=== PATIENT | male | born 1985 | race Caucasian/White ===

== ENCOUNTER 2019-03-03 12:30 | Observation (INO) ==
[2019-03-03] MEDS ORDERED: IOPAMIDOL 100 ML BOTTLE IV ONE (12:31)
--- NOTE | 2019-03-03 13:04 | Emergency Department Note ---
Abdominal Pain HPI - General Chief Complaint: Abdominal Pain Stated Complaint: Abdominal pain Time Seen by Provider: 03/03/19 12:47 Source: patient Mode of arrival: ambulatory Limitations: no limitations - History of Present Illness HPI Narrative: This 33-year-old male is accompanied by Yady, spouse or significant other, and reports 36 hours of sudden onset of right lower quadrant abdominal pain that is moderate in severity and constant and pattern. There is no associated nausea or vomiting. He did have some minor diarrhea yesterday. Th ere is been no change with urinating. He has not had a bowel movement since yesterday. Pain worsens with sitting up. He also has a lot of gas. He does have his appendix. No recent chills or sweats. REVIEW OF SYSTEMS: Denies chest pain, shortness of breath, constipation, dysuria, frequency, dizziness, anxiety, depression. He has some chronic low back pain due to dege nerative disc disease. Reports that his weight is gradually been going up, "he likes to eat". - Related Data Home Medications Medication Instructions Recorded Confirmed Cyclobenzaprine [Flexeril] 10 mg PO PRN PRN 03/03/19 03/03/19 Meloxicam 15 mg PO DAILY 03/03/19 03/03/19 Montelukast Sodium [Singulair] 10 mg PO DAILY 03/03/19 03/03/19 Allergies Allergy/AdvReac Type Severity Reaction Status Date / Time mushroom Allergy Unknown Anaphylaxis Verified 03/03/19 12:31 Onion Allergy Unknown Diarrhea, Verified 03/03/19 12:31 gas Abdominal Pain PMH - Past Medical History [facility] Narrative: Medical History (Last Updated 03/03/19 @ 13:58 by Jesse Dawson DO) Morbid obesity (Chronic) Hypersensitivity pneumonitis (Acute) GERD (gastroesophageal reflux disease) (Chronic) Dyspnea (Chronic) Testosterone deficiency in male (Chronic) Erectile dysfunction (Chronic) Sleep apnea (Chronic) Low back pain (Chronic) Thoracic back pain (Chronic) SI (sacroiliac) joint dysfunction (Chronic) Multiple allergies (Chronic) Seizures (Chronic) Joint pain (Chronic) Anxiety (Resolved) Back pain (Resolved) Bilateral hand numbness (Resolved) Cellulitis (Resolved) Elevated blood pressure reading without diagnosis of hypertension (Resolved) Serous otitis media (Resolved) Tremor (Resolved) URI (upper respiratory infection) (Resolved) Upper respiratory infection (Resolved) Viral encephalitis (Resolved ~07/2010) Viral meningitis (Resolved ~2010) Hypertension, essential (Inactive) Past Surgical History (Last Reviewed 01/01/19 @ 14:07 by Audra Vasquez PA-C) H/O colonoscopy (Chronic) Family History (Last Reviewed 01/01/19 @ 14:07 by Audra Vasquez PA-C) Grandfather Arthritis Grandfather Arthritis Grandmother Arthritis Diabetes Grandmother Arthritis Family/Other Diabetes Medical history: Reports: obesity. Denies: cancer, DM, hypertension, kidney stones, renal disease Denies: diverticulitis, pancreatitis Surgical history ED: Reports: no surgical history - Social History Smoking status: Never smoker Alcohol use: Reports: Rarely Drug use: Reports: none. Denies: marijuana Physical Exam Limitations: no limitations General appearance: alert, in no apparent distress Head: atraumatic, normocephalic Eye: Present: normal appearance, EOMI. Absent: scleral icterus, conjunctival injection Neck: Present: trachea midline. Absent: lymphadenopathy, thyromegaly Chest: Present: symmetric chest wall rise Respiratory: Present: normal lung sounds bilaterally. Absent: respiratory distress, wheezes, stridor, accessory muscle use, prolonged expiratory phase Cardiovascular: Present: regular rate, normal rhythm. Absent: systolic murmur, diastolic murmur Abdominal: Present: soft, tenderness, rebound. Absent: distention, guarding, rigidity, organomegaly, mass Abdominal tenderness: Present: RLQ, moderate. Absent: heel tap pain, right femur ext pain Back: Absent: CVA tenderness (R), CVA tenderness (L) Neurological: Present: alert, oriented X3 Psychiatric: Present: serious, poor eye contact (mildly) Skin: Present: warm, dry Course Vital Signs Temperature 98.1 F 03/03/19 12:31 Pulse Rate 89 03/03/19 12:31 Respiratory Rate 18 03/03/19 12:31 Blood Pressure 135/87 03/03/19 12:31 Pulse Oximetry (%) 95 03/03/19 12:31 Temperature 98.1 F 03/03/19 12:31 Pulse Rate 88 03/03/19 13:52 Respiratory Rate 18 03/03/19 12:31 Blood Pressure 138/88 03/03/19 13:52 Pulse Oximetry (%) 97 03/03/19 13:52 Abdominal Pain - Lab Data Result diagrams: 03/03/19 12:54 03/03/19 12:54 Lab Results 03/03/19 03/03/19 03/03/19 Range/Units 12:54 12:54 12:54 WBC 8.7 (4.5-11.0) K/mcL RBC 5.06 (4.50-5.90) M/mcL Hgb 14.5 (13.5-16.5) g/dL Hct 43.0 (41.0-55.0) % MCV 85.0 (80.0-100.0) fL MCH 28.6 (26.0-34.0) pg MCHC 33.7 (31.0-36.0) g/dL RDW 14.1 (11.5-14.5) % Plt Count 438 (140-440) K/mcL MPV 7.9 (7.4-10.4) fL Gran % 56.5 (38.0-78.0) % Lymph % (Auto) 34.6 (15.5-49.0) % Dauphin % (Auto) 6.3 (1.0-12.0) % Eos % (Auto) 2.2 (0.0-7.0) % Baso % (Auto) 0.4 (0.0-2.0) % Gran # 4.9 (1.8-8.0) K/mcL Lymph # (Auto) 3.0 (1.5-4.8) K/mcL Da[place]hin # (Auto) 0.6 (0.1-0.9) K/mcL Eos # (Auto) 0.2 (0.0-0.7) K/mcL Baso # (Auto) 0 (0.0-0.3) K/mcL Sodium 142 (133-145) mmol/L Potassium 3.8 (3.3-5.1) mmol/L Chloride 104 (96-108) mmol/L Carbon Dioxide 24 (22-30) mmol/L Anion Gap 14.0 (8-16) BUN 18 (6-20) mg/dl Creatinine 1.0 (0.7-1.2) mg/dl GFR Calculation 97 Glucose 127 H (70-105) mg/dL Calcium 9.2 (8.6-10.4) mg/dl Total Bilirubin 0.4 (0.0-1.0) mg/dL AST 17 (0-37) U/l ALT 33 (0-40) U/l Alkaline Phosphatase 62 (39-117) U/L C-Reactive Protein 4.9 H (0.0-0.8) mg/dl Total Protein 7.6 (5.9-8.4) gm/dL Albumin 4.3 (3.2-5.2) gm/dL Globulin 3.3 (2.2-3.7) gm/dL Albumin/Globulin Ratio 1.3 (1.0-2.3) Disposition Pt seen by [facility]AD/PA only: No Clinical Impression: Acute appendicitis Qualifiers: Acute appendicitis type: with localized peritonitis Appendicitis gangrene presence: with gangrene Appendicitis perforation presence: with perforation Ap pendicitis abscess presence: without abscess Qualified Code(s): K35.32 - Acute appendicitis with perforation and localized peritonitis, without abscess Summary: White blood cell count is normal. CT scan demonstrates an 11 mm appendix with poorly visualized tip and surrounding fluid suggestive of early tip rupture. Because of these findings I spoke with Dr. Charlie Call, general surgeon, who agrees to admit this patient and asked me to write admitting orders with n.p.o. and antibiotics and he will see the patient on the floor. Patient is agreeable to stay. He has no allergies; Zosyn ordered. He does not currently need pain medications. Disposition: Xfer As Inpt ([facility]) Referrals: Rosa Teran ARNP [Primary Care Provider] -
[2019-03-03 13:24] LABS: Basophils # (Auto) 0 K/mcL (0.0-0.3); Basophils % (Auto) 0.4 % (0.0-2.0); Eosinophils # (Auto) 0.2 K/mcL (0.0-0.7); Eosinophils % (Auto) 2.2 % (0.0-7.0); Granulocytes % (Auto) 56.5 % (38.0-78.0); Hemoglobin 14.5 g/dL (13.5-16.5); Lymphocytes % (Auto) 34.6 % (15.5-49.0); Mean Corpuscular HGB Conc 33.7 g/dL (31.0-36.0); Mean Platelet Volume 7.9 fL (7.4-10.4); Monocytes # (Auto) 0.6 K/mcL (0.1-0.9); Monocytes % (Auto) 6.3 % (1.0-12.0); Platelet Count 438 K/mcL (140-440); RBC 5.06 M/mcL (4.50-5.90); Red Cell Distribution Width 14.1 % (11.5-14.5); WBC 8.7 K/mcL (4.5-11.0)
--- NOTE | 2019-03-03 13:27 | Cat Scan Report ---
CLINICAL INFORMATION: Right lower quadrant pain TECHNIQUE: Axial postcontrast enhanced images through the abdomen and pelvis. Sagittal and coronal reformatted images COMPARISON: None. FINDINGS: Appendix: The appendix is enlarged and measures approximately 11 mm in cross-sectional diameter. There is mild appendiceal enhancement and periappendiceal inflammatory change. At the tip of the appendix and the wall is not well visualized and there is minimal fluid. Findings are consistent with early rupture at the distal tip. No abscess. No free air. Lung bases: Negative. No focal infiltrate. No pleural fluid or pericardial fluid Liver: Diffusely low density liver consistent with hepatic steatosis. No hepatic mass. Liver contour is smooth. No evidence for cirrhosis. There is no ascites. Gallbladder, biliary: Negative. No calcified gallstones. No gallbladder wall thickening or pericholecystic fluid. No dilated bile ducts Spleen: Negative. No splenomegaly. Normal enhancement of splenic portal vein Pancreas: Negative pancreas. No pancreatic mass. No peripancreatic abnormality. Adrenal glands: Negative Kidneys: Negative. No solid or cystic mass. No hydronephrosis. Colon and small bowel: No mechanical small bowel obstruction. No diverticulitis. There is no detectable colonic mass Peritoneum, mesentery: No free intraperitoneal fluid. No intra-abdominal abscess. No pneumoperitoneum. No biliary or portal venous gas. Vascular: Normal. No abdominal aortic aneurysm Lymphatic: No retroperitoneal or mesenteric adenopathy Musculoskeletal: No lumbar compression fractures. Sacrum and pelvis are negative. Hips are negative IMPRESSION: 1. Appendicitis 2. Appendiceal wall at the tip is not well visualized and there is localized fluid and inflammatory change. Mild rupture of the appendiceal tip suspected 3. Hepatic steatosis Interpreted and Authenticated by: Drew Dumont 03/03/19
[2019-03-03 13:46] LABS: ALT/SGPT 33 U/l (0-40); AST/SGOT 17 U/l (0-37); Albumin 4.3 gm/dL (3.2-5.2); Albumin/Globulin Ratio 1.3 (1.0-2.3); Alkaline Phosphatase 62 U/L (39-117); Bilirubin,Total 0.4 mg/dL (0.0-1.0); Blood Urea Nitrogen 18 mg/dl (6-20); Calcium 9.2 mg/dl (8.6-10.4); Carbon Dioxide 24 mmol/L (22-30); Chloride 104 mmol/L (96-108); Globulin 3.3 gm/dL (2.2-3.7); Glomerular Filtration Rate 97; Glucose 127 mg/dL (70-105)
[2019-03-03] MEDS ORDERED: ONDANSETRON 4 MG/2 ML VIAL IV PRN ×2 (13:47→18:30)
[2019-03-03] MEDS ORDERED: PIPERACILLIN SODIUM/TAZOBACTAM 3.375 GM in DEXTROSE 5% IN WATER 50 ML IV ONE (13:50)
[2019-03-03 14:24] LABS: Prothrombin Time 13.6 sec (11.9-14.5)
--- NOTE | 2019-03-03 14:24 | XRay Report ---
INDICATION: Preoperative chest x-ray. Appendicitis. TECHNIQUE: AP chest x-ray,portable semiupright COMPARISON: Previous chest x-rays dated 12/17/2018, 12/02/2018 FINDINGS:Mildly elevated right hemidiaphragm. Lungs are negative. No parenchymal infiltrate or mass. No focal pulmonary parenchymal abnormality. Heart size and vascularity are normal. Claudia and mediastinum are negative. IMPRESSION: Negative AP portable chest x-ray Interpreted and Authenticated by: Drew Dumont 03/03/19
--- NOTE | 2019-03-03 16:44 | General Surg History&Physical ---
History of Present Illness Patient information: Note initiated : 03/03/19 at 4:42 pm Service Date, if different from initiated Date: [] Patient: Charlie Crockett a 33 y/o M admitted on 03/03/19 for Abdominal pain. Chief Complaint: [] HPI: Mr. Crockett is a 33 year old M admitted with right lower quadrant pain since 12:30 AM on Friday. He denies having any nausea vomiting. His pain increased in intensity and he finally came to the emergency room. He was noted to be afebrile with a normal white count however CT shows an edematous appendix with some periappendiceal tissue edema compatible with acute appendicitis. Patient is admitted and will undergo appendectomy Review of Systems All systems PM: reviewed and no additional remarkable complaints except as stated (negative except as noted below) - Constitutional other (morbid obesity) - Respiratory snoring - Gastrointestinal abdominal pain, cramping, no nausea, no vomiting - Musculoskeletal back pain ( chronic low back pain) Past History Past medical history: Prior history of viral meningitis with seizure disorder 2010 but no recurrence Chronic obstructive sleep apnea Chronic low back pain Past surgical history: No operative procedures Past family history: Diabetes mellitus in grandparents Past social history: Prior history of tobacco use over 15 years ago Rare alcohol use Denies drug use Medications and Allergies Home Medications Medication Instructions Recorded Confirmed Type Cyclobenzaprine [Flexeril] 10 mg PO PRN PRN 03/03/19 03/03/19 History Meloxicam 15 mg PO DAILY 03/03/19 03/03/19 History Montelukast Sodium [Singulair] 10 mg PO DAILY 03/03/19 03/03/19 History Allergies Allergy/AdvReac Type Severity Reaction Status Date / Time mushroom Allergy Unknown Anaphylaxis Verified 03/03/19 12:31 Onion Allergy Unknown Diarrhea, Verified 03/03/19 12:31 gas Exam Temp Pulse Resp BP Pulse Ox 97.6 F 84 16 155/91 95 03/03/19 14:37 03/03/19 14:37 03/03/19 14:37 03/03/19 14:37 03/03/19 14:37 - General physical appearance well developed, well nourished, no distress, obese (morbidly obese) - Eyes PERRL, normal ocular movement - ENT normal pinna, normal nares, normal mucosa, no hearing loss, no congestion - Head Head exam IM: Present: atraumatic, normocephalic - Neck no masses, no bruits, trachea midline, no lymphadenopathy, no venous distension - Cardiovascular Cardiovascular exam IM: Present: normal rate and rhythm - Respiratory normal expansion, normal respiratory effort, clear to percussion, clear to auscultation - Abdomen Abdomen: Present: soft, tender ( tenderness to palpation in right lower quadrant with guarding), bowel sounds, guarding, rebound Hernia: Present: none - Genitourinary Present: normal penis with no external lesions - Integumentary Present: no rash, no growths, no abnormal pigmentation - Neurologic Present: normal coordination, normal sensation - Musculoskeletal Present: normal gait, normal posture - Psychiatric Present: oriented to time, oriented to person, oriented to place, speech is normal, memory intact Assessment and Plan (1) Acute appendicitis Patient counseled for laparoscopic appendectomy. Will be performed later this afternoon. Status: Acute Qualifiers: Acute appendicitis type: with localized peritonitis Appendicitis gangrene presence: with gangrene Appendicitis perforation presence: with perforation Appendicitis abscess presence: without abscess Qualified Code(s): K35.32 - Acute appendicitis with perforation and localized peritonitis, without abscess (2) Morbid obesity Status: Chronic (3) GERD (gastroesophageal reflux disease) Status: Chronic Qualifiers: Esophagitis presence: esophagitis presence not specified Qualified Code(s): K21.9 - Gastro-esophageal reflux disease without esophagitis (4) Sleep apnea Status: Chronic Comment: 06/12/18 refer for sleep study
[2019-03-03] MEDS ORDERED: SCOPOLAMINE 1 PATCH PATCH TOPICAL PRN (16:54)
[2019-03-03] MEDS ORDERED: IPRATROPIUM/ALBUTEROL 3 ML AMPUL.NEB NEB PRN ×2 (16:54→18:30)
[2019-03-03] MEDS ORDERED: LIDOCAINE HCL/PF 100 MG/5 ML SYRINGE IV ONE (17:50)
[2019-03-03] MEDS ORDERED: MIDAZOLAM 2 MG/2 ML VIAL IV ONE (17:50)
[2019-03-03] MEDS ORDERED: ROCURONIUM 10 MG/ML ML IV ONE (17:50)
[2019-03-03] MEDS ORDERED: DEXAMETHASONE 10 MG/ML VIAL IV ONE (17:50)
[2019-03-03] MEDS ORDERED: SUGAMMADEX SODIUM 200 MG/2 ML VIAL IV ONE (17:50)
[2019-03-03] MEDS ORDERED: PROPOFOL 200 MG/20 ML VIAL IV ONE (17:50)
[2019-03-03] MEDS ORDERED: ONDANSETRON 4 MG/2 ML VIAL IV ONE (17:50)
[2019-03-03] MEDS ORDERED: fentaNYL 250 MCG/5 ML VIAL IV ONE (17:50)
[2019-03-03] MEDS ORDERED: SUCCINYLCHOLINE 20 MG/ML ML IV ONE (17:50)
[2019-03-03] MEDS ORDERED: BENZOCAINE/MENTHOL 1 LOZENGE PO PRN (18:30)
[2019-03-03] MEDS ORDERED: ACETAMINOPHEN 1,000 MG/100 ML BOTTLE IV ONE ×2 (18:30→19:12)
[2019-03-03] MEDS ORDERED: LACTATED RINGERS 250 ML IV PRN (18:30)
[2019-03-03] MEDS ORDERED: diphenhydrAMINE 50 MG/ML VIAL IV PRN (18:30)
[2019-03-03] MEDS ORDERED: FLUMAZENIL 0.1 MG/ML ML IV PRN (18:30)
[2019-03-03] MEDS ORDERED: PROMETHAZINE 25 MG/ML VIAL IV PRN ×2 (18:30→20:31)
[2019-03-03] MEDS ORDERED: LACTATED RINGERS 1,000 ML IV SCH (18:30)
[2019-03-03] MEDS ORDERED: NALOXONE HCL 0.4 MG/ML VIAL IV PRN (18:30)
--- NOTE | 2019-03-03 19:14 | Brief Operative Note ---
Date of procedure: 03/03/19 Pre-op diagnosis: acute appendicitis Post-op diagnosis: other (acute appendicitis) Procedure: laparoscopic appendectomy Grafts/Implants: No (#10 ENRIQUE DRAIN ) Anesthesia: GETA Findings: ACUTE SUPPURATIVE APPENDICITIS Complications: none Surgeon: Cecilia Call Estimated blood loss (cc): 20 Specimens Removed/Pathology: other (APPENDIX) Condition: stable Disposition: PACU
[2019-03-03] MEDS: fentaNYL 100 MCG/2 ML VIAL IV PRN ×9 (19:15→19:49)
[2019-03-03] MEDS: MEPERIDINE 25 MG/ML SYRINGE IV PRN ×2 (19:17→19:49)
[2019-03-03] MEDS ORDERED: fentaNYL 100 MCG/2 ML VIAL IV ONE ×2 (19:18→19:43)
[2019-03-03] MEDS ORDERED: MEPERIDINE 50 MG/ML INJECTION ONE (19:19)
[2019-03-03] MEDS: 0.9 % SODIUM CHLORIDE 1,000 ML IV SCH (20:35)
[2019-03-03] MEDS: 0.9 % SODIUM CHLORIDE 10 ML SYRINGE IV SCH (20:42)
[2019-03-03] MEDS: HYDROmorphone 2 MG/ML VIAL IV PRN ×2 (20:46→22:45)
[2019-03-03] MEDS: PIPERACILLIN SODIUM/TAZOBACTAM 3.375 GM in DEXTROSE 5% IN WATER 50 ML IV SCH (21:18)
[2019-03-03] MEDS: METOCLOPRAMIDE 10 MG/2 ML VIAL IV SCH (23:54)
[2019-03-04] MEDS: HYDROcodone/APAP 5/325MG TABLET PO PRN ×3 (00:22→20:38)
[2019-03-04] MEDS: PIPERACILLIN SODIUM/TAZOBACTAM 3.375 GM in DEXTROSE 5% IN WATER 50 ML IV SCH ×4 (00:51→18:37)
[2019-03-04] MEDS: HYDROmorphone 2 MG/ML VIAL IV PRN ×2 (04:12→07:40)
[2019-03-04] MEDS: METOCLOPRAMIDE 10 MG/2 ML VIAL IV SCH ×3 (05:52→18:37)
[2019-03-04] MEDS: 0.9 % SODIUM CHLORIDE 10 ML SYRINGE IV SCH ×3 (05:52→20:37)
[2019-03-04 05:54] LABS: Basophils # (Auto) 0 K/mcL (0.0-0.3); Basophils % (Auto) 0.1 % (0.0-2.0); Eosinophils # (Auto) 0 K/mcL (0.0-0.7); Eosinophils % (Auto) 0.2 % (0.0-7.0); Granulocytes % (Auto) 89.8 % (38.0-78.0); Hematocrit 42.6 % (41.0-55.0); Hemoglobin 14.3 g/dL (13.5-16.5); Lymphocytes # (Auto) 1.1 K/mcL (1.5-4.8); Lymphocytes % (Auto) 9.2 % (15.5-49.0); Mean Cell Volume 86.3 fL (80.0-100.0); Mean Corpuscular HGB Conc 33.4 g/dL (31.0-36.0); Mean Platelet Volume 8.2 fL (7.4-10.4); Monocytes # (Auto) 0.1 K/mcL (0.1-0.9); Monocytes % (Auto) 0.7 % (1.0-12.0); Platelet Count 463 K/mcL (140-440); RBC 4.94 M/mcL (4.50-5.90); Red Cell Distribution Width 13.9 % (11.5-14.5); WBC 11.6 K/mcL (4.5-11.0)
[2019-03-04] MEDS: ONDANSETRON 4 MG/2 ML VIAL IV PRN ×2 (07:15→20:38)
[2019-03-04] MEDS: 0.9 % SODIUM CHLORIDE 1,000 ML IV SCH (07:18)
[2019-03-04] MEDS: fentaNYL 100 MCG/2 ML VIAL IV PRN ×2 (11:58→15:59)
[2019-03-04 15:18] LABS: Testosterone, Total 1.29 ng/ml (2.7-8.4)
[2019-03-04] MEDS ORDERED: PHENAZOPYRIDINE 200 MG TABLET PO PRN (15:30)
[2019-03-05] MEDS: PIPERACILLIN SODIUM/TAZOBACTAM 3.375 GM in DEXTROSE 5% IN WATER 50 ML IV SCH ×3 (01:31→11:52)
[2019-03-05] MEDS: METOCLOPRAMIDE 10 MG/2 ML VIAL IV SCH ×3 (01:31→12:01)
[2019-03-05] MEDS: 0.9 % SODIUM CHLORIDE 10 ML SYRINGE IV SCH (05:11)
[2019-03-05 05:22] LABS: Basophils # (Auto) 0 K/mcL (0.0-0.3); Basophils % (Auto) 0.1 % (0.0-2.0); Eosinophils # (Auto) 0 K/mcL (0.0-0.7); Eosinophils % (Auto) 0 % (0.0-7.0); Granulocytes % (Auto) 68.8 % (38.0-78.0); Hematocrit 39.1 % (41.0-55.0); Hemoglobin 13.1 g/dL (13.5-16.5); Lymphocytes # (Auto) 2.8 K/mcL (1.5-4.8); Lymphocytes % (Auto) 26.6 % (15.5-49.0); Mean Cell Volume 86.8 fL (80.0-100.0); Mean Corpuscular HGB Conc 33.4 g/dL (31.0-36.0); Mean Platelet Volume 8.1 fL (7.4-10.4); Monocytes # (Auto) 0.5 K/mcL (0.1-0.9); Monocytes % (Auto) 4.5 % (1.0-12.0); Platelet Count 432 K/mcL (140-440); WBC 10.4 K/mcL (4.5-11.0)
[2019-03-05 05:50] LABS: ALT/SGPT 31 U/l (0-40); AST/SGOT 19 U/l (0-37); Albumin 3.7 gm/dL (3.2-5.2); Albumin/Globulin Ratio 1.2 (1.0-2.3); Alkaline Phosphatase 53 U/L (39-117); Bilirubin,Direct < 0.2 mg/dL (0.0-0.3); Bilirubin,Total 0.2 mg/dL (0.0-1.0); Blood Urea Nitrogen 13 mg/dl (6-20); Carbon Dioxide 26 mmol/L (22-30); Chloride 105 mmol/L (96-108); Globulin 3.1 gm/dL (2.2-3.7); Glomerular Filtration Rate 110; Glucose 91 mg/dL (70-105); Lactate Dehydrogenase 140 U/L (94-250); Phosphorous 2.6 mg/dL (2.7-4.5); Triglycerides 200 mg/dl (<150); Uric Acid 5.2 mg/dL (2.5-8.0)
[2019-03-05] MEDS: HYDROcodone/APAP 5/325MG TABLET PO PRN (06:38)
[2019-03-05] MEDS: HYDROmorphone 2 MG/ML VIAL IV PRN (08:53)
[2019-03-05] MEDS ORDERED: MONTELUKAST 10 MG TABLET PO SCH (09:00)
[2019-03-05] MEDS ORDERED: ACETAMINOPHEN 500 MG TABLET PO PRN (09:43)
--- NOTE | 2019-03-05 11:04 | Surgical Pathology Report ---
HISTOLOGY SPECIMEN MICROSCOPIC DIAGNOSIS APPENDIX, APPENDECTOMY: -- ACUTE APPENDICITIS WITH SEROSITIS. (DMT:sahil) PROCEDURAL IMPRESSION Acute appendicitis. GROSS DESCRIPTION Received in formalin labeled appendix, is a kong-ivey appendix with ivey attached fat that measures 7.5 cm in length by up to 1 cm in diameter. The margin is stapled and inked black. There is kong-ivey exudate on the surface. Sectioning reveals kong-ivey tissue with red-brown viscous fluid. [facility] [employer] sections are submitted - one cassette. (SCB:sahil) Electronically Signed by: Bhupinder Day M.D.
--- NOTE | 2019-03-05 12:00 | General Surgery Progress Note ---
Subjective Patient reports: feels better, still having pain, pain is less, flatus, no bowel movement, nausea, vomiting, afebrile Narrative: Note initiated : 03/05/19 at 11:58 am Service Date, if different from initiated Date: [03/05/19] Patient: Charlie Crockett 33 y/o M admitted on 03/03/19 for Abdominal pain. Chief Complaint: [ patient states that he is having significant abdominal pain. He has moderate amount of pain in the right lower quadrant. His BAILEE drain has bloody fluid. He has had nausea and vomiting 3. White blood count 11.6, hemoglobin 14.3..] Objective Temp Pulse Resp BP Pulse Ox 97.0 F 64 14 134/74 94 03/05/19 07:54 03/05/19 07:54 03/05/19 07:54 03/05/19 07:54 03/05/19 07:54 - Additional Data Intake & Output - Last 24 hours: Intake & Output 03/03/19 03/04/19 03/05/19 03/06/19 05:59 05:59 05:59 05:59 Intake Total 1925 3100 780 Output Total 1210 1820 Balance 715 1280 780 Weight 356 lb 8 oz 357 lb 2 oz - General physical appearance well developed, well nourished, no distress, moderate pain, obese - Eyes PERRL, normal ocular movement - ENT normal pinna, normal nares, normal mucosa, no hearing loss, no congestion - Neck no masses, no bruits, trachea midline, no lymphadenopathy, no venous distension - Respiratory normal expansion, normal respiratory effort, clear to auscultation - Cardiovascular Cardiovascular exam: Present: normal rate and rhythm, RRR, +S1, +S2. Absent: JVD, tachycardia - Abdomen tender (moderate tenderness in right lower quadrant and around the port sites), bowel sounds (present), surgical scars (. BAILEE drain with bloody drainage), masses (none) - Integumentary no rash, no growths, no abnormal pigmentation - Neurologic normal coordination, normal sensation - Musculoskeletal normal gait, normal posture - Psychiatric oriented to time, oriented to person, oriented to place, speech is normal, memory intact - Labs 03/05/19 03:51 03/05/19 03:51 Diabetes panel 03/05/19 Range/Units 03:51 Sodium 141 (133-145) mmol/L Potassium 4.0 (3.3-5.1) mmol/L Chloride 105 (96-108) mmol/L Carbon Dioxide 26 (22-30) mmol/L BUN 13 (6-20) mg/dl Creatinine 0.9 (0.7-1.2) mg/dl Glucose 91 (70-105) mg/dL Calcium 9.0 (8.6-10.4) mg/dl AST 19 (0-37) U/l ALT 31 (0-40) U/l Alkaline Phosphatase 53 (39-117) U/L Total Protein 6.8 (5.9-8.4) gm/dL Albumin 3.7 (3.2-5.2) gm/dL Triglycerides 200 H (<150) mg/dl Calcium panel 03/05/19 Range/Units 03:51 Calcium 9.0 (8.6-10.4) mg/dl Phosphorus 2.6 L (2.7-4.5) mg/dL Albumin 3.7 (3.2-5.2) gm/dL Pituitary panel 03/05/19 Range/Units 03:51 Sodium 141 (133-145) mmol/L Potassium 4.0 (3.3-5.1) mmol/L Chloride 105 (96-108) mmol/L Carbon Dioxide 26 (22-30) mmol/L BUN 13 (6-20) mg/dl Creatinine 0.9 (0.7-1.2) mg/dl Glucose 91 (70-105) mg/dL Calcium 9.0 (8.6-10.4) mg/dl Adrenal panel 03/05/19 Range/Units 03:51 Sodium 141 (133-145) mmol/L Potassium 4.0 (3.3-5.1) mmol/L Chloride 105 (96-108) mmol/L Carbon Dioxide 26 (22-30) mmol/L BUN 13 (6-20) mg/dl Creatinine 0.9 (0.7-1.2) mg/dl Glucose 91 (70-105) mg/dL Calcium 9.0 (8.6-10.4) mg/dl Total Bilirubin 0.2 (0.0-1.0) mg/dL AST 19 (0-37) U/l ALT 31 (0-40) U/l Alkaline Phosphatase 53 (39-117) U/L Total Protein 6.8 (5.9-8.4) gm/dL Albumin 3.7 (3.2-5.2) gm/dL Assessment and Plan (1) Acute appendicitis Status: Acute Assessment and plan: Patient is improved but still has significant nausea. He cannot tolerate diet at this time. Will delay discharge. Reevaluate tomorrow. Current Visit: Yes (2) Morbid obesity Status: Chronic Current Visit: No (3) GERD (gastroesophageal reflux disease) Status: Chronic Current Visit: No (4) Sleep apnea Problem details: 06/12/18 refer for sleep study Status: Chronic Current Visit: No - Time Spent With Patient Total time spent is greater than 50% in coordination of care (as documented) at patient's floor/unit and/or counseling patient:
--- NOTE | 2019-03-05 12:04 | Discharge Summary ---
Providers - Providers Patient information: Note initiated : 03/05/19 at 12:02 pm Service Date, if different from initiated Date: [] Patient: Charlie Crockett 33 y/o M admitted on 03/03/19 for Abdominal pain. Chief Complaint: [] Date of admission: 03/03/19 Discharge date: 03/05/19 Attending physician: Cecilia Call Hospitalization Hospital Course: 33-year-old male admitted with right lower quadrant pain with nausea but no vomiting. Evaluation revealed normal white count, but CT showed acute appendicitis. Patient was admitted and underwent laparoscopic appendectomy. There was a moderate amount of purulence in the right lower quadrant and right gutter. A BAILEE drain was placed. The patient had nausea and vomiting on the first postoperative day, but is doing well now. He is tolerating a regular diet. White blood count 10.4, hemoglobin 13.1. Patient is felt to be stable enough for discharge home Discharge diagnosis: acute appendicitis Secondary discharge diagnosis: Obstructive sleep apnea Morbid obesity Reason for admission: abdominal pain with acute appendicitis Procedures: Laparoscopic appendectomy Pertinent studies/significant findings: CT of abdomen and pelvis with contrast Complications: None Exam Temp Pulse Resp BP Pulse Ox 97.0 F 64 14 134/74 94 03/05/19 07:54 03/05/19 07:54 03/05/19 07:54 03/05/19 07:54 03/05/19 07:54 - General physical appearance well developed, well nourished, no distress - Eyes PERRL, normal ocular movement - ENT normal pinna, normal nares, normal mucosa, no hearing loss, no congestion - Head Head exam IM: Present: atraumatic, normocephalic - Neck no masses, no bruits, trachea midline, no lymphadenopathy, no venous distension - Cardiovascular Cardiovascular exam IM: Present: normal rate and rhythm - Respiratory normal expansion, normal respiratory effort, other (decreased breath sounds bilaterally) - Abdomen Abdomen: Present: soft, tender (, tenderness in right lower quadrant and around port sites), bowel sounds, surgical scars (. BAILEE drain with bloody drainage) Hernia: Present: none - Genitourinary Present: normal penis with no external lesions - Integumentary Present: no rash, no growths, no abnormal pigmentation - Neurologic Present: normal coordination, normal sensation - Musculoskeletal Present: normal gait, normal posture - Psychiatric Present: oriented to time, oriented to person, oriented to place, speech is no rmal, memory intact Discharge Plan - Patient/Caregiver Discharge Instructions Activity: increase activity as tolerated Diet: Regular Diet Additional Instructions: Leave dressing in place until seen in the physician's office. No heavy lifting. May shower. No soaking in tub/pool/jacuzzi. Increase activity as tolerated. To avoid constipation while taking any narcotic medication, take an over the counter stool softener/laxative. Prescriptions: Levofloxacin [Levaquin] 750 mg PO DAILY #7 tab Transmission Status: Pending to [employer] [facility] - [facility] - Follow up Plan Follow up with: Rosa Teran ARNP [Primary Care Provider] - Cecilia Call MD [Physician] - 03/18/19 1:00 pm Disposition: Home, Self-Care Care Plan Goals: This discharge packet is provided to you to help keep you informed about your care. We want to ensure you get everything you need when you go home. You will also be receiving a call from us in a few days to follow up with you and see how you are doing since your discharge. This gives us a chance to listen to any concerns you maybe experiencing since you were discharged or any additional needs you may have, as well as providing us feedback on your care experience. We strive to always provide excellent care and thank you for your feedback and for choosing [facility]. Prognosis: Good Rehab Potential: Good I certify that the patient requires SNF services.: No Overall status at discharge: patient is progressing back to baseline Pending Studies Resuscitation Status Full Code Diet Regular Diet Start FriMar 0543 Acetaminophen (Tylenol) 1,000 mg PO Q6HP PRN; Protocol PRN Reason: Pain Last Admin: 03/05/19 11:59 Dose: 1,000 mg Documented by: YUDI Hydrocodone Bitart/Acetaminophen (Adel 5/325mg) 1 tab PO Q4HP PRN; Protocol PRN Reason: Per Pain Protocol Last Admin: 03/05/19 06:38 Dose: 1 tab Documented by: Admin: 03/04/19 20:38 Dose: 1 tab Documented by: Admin: 03/04/19 04:11 Dose: 1 tab Documented by: Admin: 03/04/19 00:22 Dose: 1 tab Documented by: ARCHIE Fentanyl (Sublimaze) 25 mcg IV Q4HP PRN; Protocol PRN Reason: Per Pain Protocol Last Admin: 03/04/19 15:59 Dose: 25 mcg Documented by: Admin: 03/04/19 11:58 Dose: 25 mcg Documented by: EUGENE Hydromorphone HCl (Dilaudid) 1 mg IV Q2HP PRN PRN Reason: PAIN LEVEL > 6 Last Admin: 03/05/19 08:53 Dose: 1 mg Documented by: Admin: 03/04/19 07:40 Dose: 1 mg Documented by: Admin: 03/04/19 04:12 Dose: 1 mg Documented by: Admin: 03/03/19 22:45 Dose: 1 mg Documented by: Admin: 03/03/19 20:46 Dose: 1 mg Documented by: ARCHIE Piperacillin Sod/Tazobactam (Sod 3.375 gm/ Dextrose) 50 mls @ 100 mls/hr IV Q6H SHASHI; Protocol Last Admin: 03/05/19 11:52 Dose: 100 mls/hr Documented by: Infusion: 03/05/19 05:40 Dose: 100 mls/hr Documented by: Admin: 03/05/19 05:10 Dose: 100 mls/hr Documented by: Infusion: 03/05/19 02:01 Dose: 100 mls/hr Documented by: Admin: 03/05/19 01:31 Dose: 100 mls/hr Documented by: Infusion: 03/04/19 19:17 Dose: 100 mls/hr Documented by: Admin: 03/04/19 18:37 Dose: 100 mls/hr Documented by: Infusion: 03/04/19 12:45 Dose: 0 mls/hr Documented by: Admin: 03/04/19 12:06 Dose: 100 mls/hr Documented by: Infusion: 03/04/19 06:41 Dose: 0 mls/hr Documented by: Admin: 03/04/19 05:52 Dose: 100 mls/hr Documented by: Infusion: 03/04/19 01:21 Dose: 100 mls/hr Documented by: Admin: 03/04/19 00:51 Dose: 100 mls/hr Documented by: Infusion: 03/03/19 21:48 Dose: 100 mls/hr Documented by: Admin: 03/03/19 21:18 Dose: 100 mls/hr Documented by: ARCHIE Metoclopramide HCl (Reglan) 10 mg IV Q6 [facility] Last Admin: 03/05/19 12:01 Dose: 10 mg Documented by: Admin: 03/05/19 05:11 Dose: Not Given Documented by: Admin: 03/05/19 01:31 Dose: Not Given Documented by: Admin: 03/04/19 18:37 Dose: 10 mg Documented by: Admin: 03/04/19 12:01 Dose: 10 mg Documented by: Admin: 03/04/19 05:52 Dose: 10 mg Documented by: Admin: 03/03/19 23:54 Dose: 10 mg Documented by: ARCHIE Montelukast Sodium (Singular) 10 mg PO DAILY [facility] Last Admin: 03/05/19 09:46 Dose: 10 mg Documented by: YUDI Ondansetron HCl (Zofran) 4 mg IV Q4HP PRN PRN Reason: Nausea And Vomiting Last Admin: 03/04/19 20:38 Dose: 4 mg Documented by: Admin: 03/04/19 07:15 Dose: 4 mg Documented by: EUGENE Promethazine HCl (Phenergan) 12.5 mg IV Q4HP PRN PRN Reason: Nausea And Vomiting Last Admin: 03/04/19 08:00 Dose: 12.5 mg Documented by: EUGENE Sodium Chloride (Saline Flush) 10 ml IV Q8 [facility] Last Admin: 03/05/19 05:11 Dose: 10 ml Documented by: Admin: 03/04/19 20:37 Dose: 10 ml Documented by: Admin: 03/04/19 15:19 Dose: 10 ml Documented by: Admin: 03/04/19 05:52 Dose: Not Given Documented by: Admin: 03/03/19 20:42 Dose: Not Given Documented by: ARCHIE Shift Summary 03/05/19 03:24 Shift Summary by Natalie Madrigal 33 year old male here for Lap Appy. alert and oriented x3. VSS. able to make needs known. pt was medicated with hydrocodone po x 1 for c/o 7/10 pain at surgical site and that was effective. 2x ABD lap sites, & BAILEE drain site to ABD - covered w/ Tegaderm - 20ml serosang. fluid out BAILEE - dressings c/d/i. HRR, lung sounds clear all lobes, denies SOB. respirations even unlabored. bowel tones active x 4 quadrants. reports passing gas. no c/o nausea this shift medicated with reglan scheduled and zofran x 1 with pain medications. effective. voiding QS per urinal . independent in room steady gait. sats WNL on R.A. saline locked. on iv zosyn q 4 hrs. at bed side very supportive calm, pleasant, & cooperative. Initialized on 03/05/19 03:24 - END OF NOTE
--- NOTE | 2019-03-12 11:43 | Operative Note ---
DATE OF OPERATION: 03/03/2019 PREOPERATIVE DIAGNOSIS: Acute appendicitis. POSTOPERATIVE DIAGNOSIS: Acute appendicitis. PROCEDURE: Laparoscopic appendectomy FINDINGS: Acute suppurative appendicitis. SURGEON: Cecilia Call MD DESCRIPTION OF PROCEDURE: Under general anesthesia, the patient's abdomen was prepped and draped in a sterile field. Supraumbilical incision was made. Veress needle was inserted. Abdomen was insufflated with 3 liters of CO2. The patient was placed in reverse Trendelenburg position. Under videoscopic guidance, a 5 mm port was placed in the suprapubic midline and a 12 mm port in the left lower quadrant. The omental fat was very thick and difficult to move. The patient was rotated to the left as much as was safely comfortable. The cecum was grasped and rotated. The base of the cecum was followed and an inflamed suppurative appendix was noted. It was dissected using blunt dissection and then grasped with a self-retaining grasper. The base of the appendix was found. A window was made in the mesoappendix at the base and the appendix was transected using endo ERMIAS stapler. The mesoappendix was transected using three fires of the endo ERMIAS stapler. The staple line in the mesoappendix was also clipped with multiple clips and cauterized because the staple line did not appear to be secure. The appendix was placed in an Endopouch and retrieved. Irrigation was carried out. A #10 [place] drain was placed and brought out through the suprapubic midline. CO2 was allowed to escape through the ports and the ports were removed. Fascia at the umbilicus was closed with interrupted 0 Vicryl. Drain was secured with 2-0 nylon. Incisions were closed with blade. Tegaderm dressings were placed. The patient was awakened, extubated and transferred to the postanesthetic care unit in a stable, satisfactory condition. LCS:ra Job ID: [id number] Doc ID: [id number] Cecilia Call M.D.
== END 2019-03-05 15:30 | disposition home or self-care (01) ==
LOC: MEDSUR 12:30 → ED 12:30 → MEDSUR 14:33
PROVIDERS: ADMIT Family Medicine Adult Medicine; ATTEND Family Medicine Adult Medicine